=== PATIENT | female | born 1965 | race Caucasian/White ===

== ENCOUNTER 2018-10-16 23:09 | Emergency (ER) | payer BC ==
[~2018-10-16] VITALS: Ht 170.2 cm; Wt 83.6 kg
[2018-10-16] MEDS ORDERED: LEVO125 PO (23:16)
[2018-10-16] MEDS ORDERED: BP MED PO (23:16)
[2018-10-16] MEDS ORDERED: HYDR25TA PO (23:16)
[2018-10-16] MEDS ORDERED: SILVER NITRATE APPLICATOR 1 EA STICK TP ONE ×2 (23:55→23:56)
[2018-10-17] MEDS ORDERED: PHENYLEPHRINE HCL 1% 15 ML NASAL SPRAY NASAL ONE (00:30)
[2018-10-17] MEDS ORDERED: COCAINE HCL 4% TP ONE ×3 (00:45→02:00)
[2018-10-17] MEDS ORDERED: CloNIDine HCL 0.2 MG TABLET PO ONE (01:15)
[2018-10-17 01:45] LABS: BASOPHILS % (AUTO) 0.8 % (0.0-2.0); EOSINOPHILS % (AUTO) 2.8 % (1.0-6.0); HEMATOCRIT 35.6 % (36-46); HEMOGLOBIN 12.3 g/dL (12.0-16.0); LYMPHOCYTES # (AUTO) 3.1 K/uL (1.0-4.8); LYMPHOCYTES % (AUTO) 34.3 % (22.0-44.0); MEAN CORPUSCULAR HEMOGLOBIN 30.8 pg (26.0-34.0); MEAN CORPUSCULAR HGB CONC 34.7 G/dL (31.0-37.0); MEAN CORPUSCULAR VOLUME 89 fL (80-100); MONOCYTES # (AUTO) 0.6 K/uL (0.1-1.0); MONOCYTES % (AUTO) 6.3 % (2.0-9.0); NEUTROPHILS # (AUTO) 5.1 K/uL (1.8-7.7); NEUTROPHILS % (AUTO) 55.8 % (40.0-70.0); PLATELET COUNT (AUTO) 315 K/uL (150-450); RED BLOOD CELL COUNT(AUTO) 4.01 MIL/uL (4.00-5.20); RED CELL DISTRIBUTION WIDTH 13.4 % (11.5-14.5)
[2018-10-17 01:52] LABS: INR 0.9 (0.9-1.1); PROTHROMBIN TIME 9.9 SEC (9.4-11.6)
[2018-10-17 03:40] VITALS: BP 116/78
== END 2018-10-17 04:15 | disposition home or self-care (01) ==
LOC: EMS 23:11
DX: R04.0 Epistaxis (principal); I10 Essential (primary) hypertension
CPT/HCPCS: 30901